=== PATIENT | male | born 1955 | race Caucasian/White ===

== ENCOUNTER 2016-12-02 06:46 | Day surgery (SDC) | payer OTHER ==
[2016-11-30 14:24] VITALS: BMI 36.6
[~2016-12-02 06:46] MED LIST: LACTATED RINGERS 1,000 ML IV SCH
[2016-12-02 07:11] VITALS: TEMP 98.6
[2016-12-02] MEDS ORDERED: LACTATED RINGERS 1,000 ML IV ONE (07:26)
[2016-12-02] MEDS ORDERED: PROPOFOL 10 MG/ML 20 ML VIAL IV ONE (07:41)
[2016-12-02] MEDS ORDERED: LIDOCAINE 1% INJ 10MG/ML (20 ML MDV) ONE (07:41)
[2016-12-02] MEDS ORDERED: GLYCOPYRROLATE 0.2 MG/ML 2 ML VIAL ONE (07:41)
[2016-12-02] MEDS ORDERED: fentaNYL (PF) 50 MCG/ML 2 ML AMP ONE (07:41)
[2016-12-02] MEDS ORDERED: MIDAZOLAM 2 MG/2 ML VIAL ONE (07:41)
--- NOTE | 2016-12-02 07:48 | P.GSHP ---
History of Present Illness H&P Date: 12/02/16 Chief Complaint: GI bleeding Patient today for upper and lower endoscopy. He has a recent diagnosis of GI bleeding. Last colonoscopy he believes was about 4-5 years ago. No family history of colon cancer. No change in bowel habits. He does not see any blood or melena Past Medical History Past Medical History: Hypertension, Thyroid Disorder History of Any Multi-Drug Resistant Organisms: None Reported Past Surgical History: Tonsillectomy Additional Past Surgical History / Comment(s): COLONOSCOPY X 2 Past Anesthesia/Blood Transfusion Reactions: No Reported Reaction Smoking Status: Never smoker - Past Family History Mother Family Medical History: Cancer Father Family Medical History: Cancer Medications and Allergies Home Medications Medication Instructions Recorded Confirmed Type Ergocalciferol [Vitamin D2 2 tab PO Q30D 11/30/16 11/30/16 History (DRISDOL)] Losartan Potassium [Cozaar] 25 mg PO DAILY 11/30/16 11/30/16 History Mirtazapine [Remeron] 45 mg PO HS 11/30/16 11/30/16 History Multivitamins, Thera [Multivitamin 1 tab PO DAILY 11/30/16 11/30/16 History (formulary)] Venlafaxine HCl [Effexor XR] 300 mg PO DAILY 11/30/16 11/30/16 History clonazePAM [Clonazepam] 2 mg PO HS 11/30/16 11/30/16 History Allergies Allergy/AdvReac Type Severity Reaction Status Date / Time No Known Allergies Allergy Verified 11/30/16 14:18 Surgical - Exam Vital Signs Temp Pulse Resp BP Pulse Ox 98.6 F 80 18 130/80 94 L 12/02/16 07:09 12/02/16 07:09 12/02/16 07:09 12/02/16 07:09 12/02/16 07:09 Physical exam: General: Well-developed, well-nourished HEENT: Normocephalic, sclerae nonicteric Abdomen: Nontender, nondistended Extremities: No edema Neuro: Alert and oriented Assessment and Plan (1) GI bleed Narrative/Plan: Will proceed with upper and lower endoscopy at this time. Status: Acute
--- NOTE | 2016-12-02 08:10 | P.PCN ---
Date of Procedure: 12/02/16 Preoperative Diagnosis: Postoperative Diagnosis: Procedure(s) Performed: PREOPERATIVE DIAGNOSIS: GI bleeding POSTOPERATIVE DIAGNOSIS: Gastritis, esophagitis, normal colon PROCEDURE: 1. EGD with biopsy 2. Colonoscopy ANESTHESIA: MAC SURGEON: Nam Asencio M.D. SPECIMENS: Antrum, distal esophagus ENDOSCOPIC PROCEDURE: The patient was on the endoscopy table in the left decubitus position. The Olympus gastroscope was inserted into the oropharynx and passed under direct visualization to the region of the third portion of the duodenum. From that point the scope was slowly withdrawn inspecting all surfaces carefully. There were no neoplastic inflammatory or polypoid lesions throughout the duodenum. The pylorus was widely patent. The stomach was carefully inspected. There was gastritis present. A biopsy of the antrum took place to rule out H. pylori. Retroflexion revealed a normal hiatus. The esophagus was then carefully examined. There was mild distal esophagitis present. The remainder the esophagus appear normal. The patient was kept on the endoscopy table in the left decubitus position. The Olympus colonoscope was inserted into the anus and passed under direct visualization to the base of the cecum. The appendiceal orifice was visualized. From that point the scope was slowly withdrawn inspecting all surfaces carefully. There were no neoplastic inflammatory or polypoid lesions throughout the cecum, ascending, transverse, descending, sigmoid and rectum. There was no diverticulosis noted. Digital rectal examination was normal. The patient was taken to the recovery room in stable condition per anesthesia guidelines. RECOMMENDATIONS: Increase fiber. Await the results. No upper or lower endoscopic evidence of bleeding. Follow-up colonoscopy in 7-10 years. Implants: Indications for Procedure: Operative Findings: Description of Procedure:
[2016-12-02 08:14] VITALS: RESP 16
[2016-12-02 08:33] VITALS: BP 127/84; PULSE 70
== END 2016-12-02 08:51 | disposition home or self-care (01) ==
LOC: ORWHC2ENDO 06:46
PROVIDERS: ATTEND Surgery
DX: K29.50 Unspecified chronic gastritis without bleeding (principal); K20.8 Other esophagitis; I10 Essential (primary) hypertension; K92.2 Gastrointestinal hemorrhage, unspecified; F32.9 Major depressive disorder, single episode, unspecified; Z79.899 Other long term (current) drug therapy
CPT/HCPCS: 88305; 88342; 45378; 43239; J2250; J2001; J3010; J2704

== ENCOUNTER → 2018-07-16 | Outpatient (CLI) | payer OTHER ==
[2018-07-16 14:29] LABS: Basophils % (A) 0 %; Eosinophils # (A) 0.1 k/uL (0-0.7); Eosinophils % (A) 2 %; HCT 40.7 % (39.0-53.0); HGB 13.5 gm/dL (13.0-17.5); Lymphocytes # (A) 1.5 k/uL (1.0-4.8); Lymphocytes % (A) 22 %; MCH 30.2 pg (25.0-35.0); MCHC 33.1 g/dL (31.0-37.0); MCV 91.1 fL (80.0-100.0); Mean Platelet Volume 6.4; Monocytes # (A) 0.4 k/uL (0-1.0); Monocytes % (A) 6 %; Neutrophils # (A) 4.8 k/uL (1.3-7.7); Neutrophils % (A) 68 %; Platelet Count 266 k/uL (150-450); RBC 4.47 m/uL (4.30-5.90); RDW 13.6 % (11.5-15.5); WBC 6.9 k/uL (3.8-10.6)
[2018-07-16 18:34] LABS: Albumin 4.4 g/dL (3.80-4.90); Albumin/Globulin Ratio 1.76 (1.60-3.17); Anion Gap 4.9 mmol/L (4.00-12.00); Calcium 9.4 mg/dL (8.7-10.3); Carbon Dioxide 28.1 mmol/L (21.6-31.8); Globulin 2.5 g/dL (1.6-3.3); LDL Cholesterol,Calculated 94.2 mg/dL (0.0-131.0); Potassium 4.7 mmol/L (3.5-5.5); Total Bilirubin 0.4 mg/dL (0.3-1.2); Total Protein 6.9 g/dL (6.2-8.2); VLDL Calculation 33.8 mg/dL (5.00-40.00)
[2018-07-16 18:49] LABS: T4, Free (Free Thyroxine) 0.9 ng/dL (0.80-1.80)
[2018-07-16 20:43] LABS: Hemoglobin A1C 5.8 % (4.0-6.0)
== END | disposition home or self-care (01) ==
LOC: LABWHC1 13:12
PROVIDERS: ATTEND Psychiatry & Neurology Psychiatry
DX: Z51.81 Encounter for therapeutic drug level monitoring (principal); Z79.899 Other long term (current) drug therapy
CPT/HCPCS: 36415; 80053; 80061; 83036; 84439; 84443; 85025

== ENCOUNTER 2021-04-13 09:38 | Day surgery (SDC) | payer OTHER ==
[2021-04-08 15:51] VITALS: BMI 34.2
[~2021-04-13 09:38] MED LIST changes: +LIDOCAINE 1% (10MG/ML) FOR IV START INTRADERMA PRN
[2021-04-13 10:38] VITALS: RESP 18; TEMP 98.3
[2021-04-13] MEDS ORDERED: PROPOFOL 10 MG/ML 20 ML VIAL IV ONE (10:51)
[2021-04-13] MEDS ORDERED: LIDOCAINE 1% INJ 10MG/ML (20 ML MDV) ONE (10:51)
--- NOTE | 2021-04-13 10:54 | P.GSHP ---
History of Present Illness H&P Date: 04/13/21 Chief Complaint: Blood in stool 65-year-old male here today for colonoscopy. He had recent stool studies showing blood in stool. Patient says he has some perianal itching. He does not see rectal bleeding. Last colonoscopy 4.5 years ago was normal. No family history of colon cancer. Past Medical History Past Medical History: Hypertension, Pneumonia, Thyroid Disorder History of Any Multi-Drug Resistant Organisms: None Reported Past Surgical History: Tonsillectomy Additional Past Surgical History / Comment(s): COLONOSCOPY X 2 Past Anesthesia/Blood Transfusion Reactions: No Reported Reaction Smoking Status: Never smoker - Past Family History Mother Family Medical History: Cancer Father Family Medical History: Cancer Medications and Allergies Home Medications Medication Instructions Recorded Confirmed Type Ergocalciferol [Vitamin D2 2 tab PO Q30D 11/30/16 04/08/21 History (DRISDOL)] Multivitamins, Thera [Multivitamin 1 tab PO DAILY 11/30/16 04/08/21 History (formulary)] Levothyroxine Sodium [Synthroid] 25 mcg PO DAILY 04/08/21 04/08/21 History Losartan [Cozaar] 50 mg PO DAILY 04/08/21 04/08/21 History Mirtazapine [Remeron] 15 mg PO HS 04/08/21 04/08/21 History Venlafaxine HCl [Effexor XR] 37.5 mg PO HS 04/08/21 04/08/21 History traZODone HCL [TraZODone HCl] 50 mg PO HS 04/08/21 04/08/21 History Allergies Allergy/AdvReac Type Severity Reaction Status Date / Time No Known Allergies Allergy Verified 04/08/21 15:42 Surgical - Exam Vital Signs Temp Pulse Resp BP Pulse Ox 98.3 F 72 18 148/78 97 04/13/21 10:36 04/13/21 10:36 04/13/21 10:36 04/13/21 10:36 04/13/21 10:36 Physical exam: General: Well-developed, well-nourished HEENT: Normocephalic, sclerae nonicteric Abdomen: Nontender, nondistended Extremities: No edema Neuro: Alert and oriented Assessment and Plan (1) GI bleed Narrative/Plan: Will proceed with colonoscopy at this time Current Visit: No Status: Acute Code(s): K92.2 - GASTROINTESTINAL HEMORRHAGE, UNSPECIFIED SNOMED Code(s): 40103786
--- NOTE | 2021-04-13 11:12 | P.PCN ---
Date of Procedure: 04/13/21 Procedure(s) Performed: PREOPERATIVE DIAGNOSIS: Blood in stool POSTOPERATIVE DIAGNOSIS: Descending colon polyp, rectal polyp, pruritus ani PROCEDURE: Colonoscopy with biopsy ANESTHESIA: MAC SURGEON: Nam Asencio M.D. SPECIMENS: Descending colon polyp, rectal polyp ENDOSCOPIC PROCEDURE: The patient was placed on the endoscopy table in the left decubitus position. The Olympus colonoscope was inserted into the anus and passed under direct visualization to the base of the cecum. The appendiceal orifice was visualized. From that point the scope was slowly withdrawn inspecting all surfaces carefully. There were no neoplastic inflammatory or polypoid lesions throughout the cecum, ascending, and transverse colon. In the descending colon a small polyp was seen and removed using the cold biopsy forceps. Sigmoid colon was normal. In the rectum another small polyp was seen and removed using the cold biopsy forceps. There was no visible diverticulosis. Digital rectal examination was normal. The patient had evidence of pruritus ani and I suspect this was the source of recent blood in stool on fecal occult blood testing. The patient was taken to the recovery room in stable condition per anesthesia guidelines. RECOMMENDATIONS: Resume diet. Follow colonoscopy 10 years. Recommend dermatol ogy evaluation of pruritus ani if topical hydrocortisone cream is not helpful.
[2021-04-13 11:31] VITALS: BP 128/67; PULSE 62
== END 2021-04-13 11:58 | disposition home or self-care (01) ==
LOC: ORWHC2ENDO 09:38
PROVIDERS: ATTEND Surgery
DX: K63.5 Polyp of colon (principal); K62.1 Rectal polyp; L29.0 Pruritus ani; K92.1 Melena; I10 Essential (primary) hypertension; E07.9 Disorder of thyroid, unspecified; Z79.890 Hormone replacement therapy; Z79.899 Other long term (current) drug therapy; Z87.01 Personal history of pneumonia (recurrent); Z90.89 Acquired absence of other organs; Z80.9 Family history of malignant neoplasm, unspecified
CPT/HCPCS: 88305; 45380; J2001; J2704

== ENCOUNTER → 2023-03-13 | Outpatient (CLI) | payer MEDICARE ==
--- NOTE | 2023-03-13 13:58 | CT ---
EXAMINATION TYPE: CT chest wo con CT DLP: 705 mGycm, Automated exposure control for dose reduction was used. DATE OF EXAM: 03/13/2023 1:41 PM COMPARISON: None CLINICAL INDICATION:Male, 67 years old with history of R05.9 cough; PHH, cough TECHNIQUE: Multiple axial images were obtained through the chest without IV contrast. Lack of IV or o ral contrast limits evaluation of solid and hollow organ viscera. . Coronal and sagittal reformats re viewed. FINDINGS: LUNGS/ PLEURA: No pleural effusion, pneumothorax, focal consolidation. Stable scattered pulmonary nod ules with largest in the left lower lobe measuring 7 mm (series 4, image 47). Largest within the ling marnie measures 5 mm (series 4, image 39). Largest within the right upper lobe measures 5 mm (series 4, image 28). Largest within the right middle lobe measures 9 mm (series 4, image 40). Largest within t he right lower lobe measures 5 mm ((series 4, image 48). AIRWAY: Patent and unremarkable.. HEART: Size within normal limits. . MEDIASTINUM: No gross evidence of adenopathy. VASCULATURE: No aortic aneurysm. MUSCULOSKELETAL: Mild disc degeneration changes are present throughout the thoracolumbar spine. No ac k[place] osseous abnormality. SOFT TISSUES/LYMPH NODES: Unremarkable. LOWER NECK: No significant findings. UPPER ABDOMEN: Small hiatal hernia. IMPRESSION: Several pulmonary nodules with largest measuring up to 9 mm. Follow-up CT chest in 3-6 months is octavio mmended.
== END | disposition home or self-care (01) ==
LOC: RADCTMAIN 13:03
PROVIDERS: ATTEND Family Medicine
DX: R91.8 Other nonspecific abnormal finding of lung field (principal); R05.9 Cough, unspecified
CPT/HCPCS: 71250